=== PATIENT | male | born 1990 | race Caucasian/White ===

== ENCOUNTER 2018-01-19 04:11 | Inpatient (IN) | payer BC ==
[~2018-01-19] VITALS: Ht 182.9 cm; Wt 84.4 kg
[2018-01-19] MEDS ORDERED: NKM (04:15)
[2018-01-19 04:18] VITALS: BP 131/82
--- NOTE | 2018-01-19 04:22 | Emergency Room Report ---
History of Present Illness General Chief Complaint: Abdominal Pain Source: Patient Present Illness HPI This is a 27-year-old male with a history of kidney stone. He presents with chief complaint of renal colic. He was at another hospital 2 weeks ago and diagnosed with a 7 mm right kidney stone. He said it was doing well until about a week ago. He started having mild pain today. It came on severely about an hour ago. He had to call 911. Pain is 10 out of 10. radiating to right groin area. Denies any fever chills denies any hematuria. Does have nausea and vomiting. Nothing made it better. Nothing made it worse. Allergies: Coded Allergies: No Known Allergies (Unverified , 01/19/18) Patient History Past Medical History: see triage record, old chart reviewed Past Surgical History: other Pertinent Family History: none Social History: Denies: smoking Immunizations: other Reviewed Nursing Documentation: PMH: Agreed; PSxH: Agreed Nursing Documentation-PMH Past Medical History: No Stated History Review of Systems Eye: Denies: eye pain, blurred vision ENT: Denies: ear pain, nose congestion, throat swelling Respiratory: Denies: cough, shortness of breath Cardiovascular: Denies: chest pain, palpitations Gastrointestinal: Denies: abdominal pain, diarrhea, nausea, vomiting Genitourinary: Reports: pain Musculoskeletal: Denies: back pain, joint pain Skin: Denies: rash Neurological: Denies: headache, numbness Endocrine: Denies: increased thirst, increased urine Hematologic/Lymphatic: Denies: easy bruising All Other Systems: negative except mentioned in HPI Physical Exam Vital Signs Date Time Temp Pulse Resp B/P (MAP) Pulse Ox O2 Delivery O2 Flow Rate FiO2 01/19/18 04:10 98.2 125 18 130/80 95 Room Air vitals with tachycardia Sp02 EP Interpretation: reviewed, normal General Appearance: well appearing, alert, moderate distress - Secondary to pain Head: normocephalic, atraumatic Eyes: bilateral eye PERRL, bilateral eye EOMI ENT: hearing grossly normal, normal pharynx Neck: full range of motion, supple, no meningismus Respiratory: chest non-tender, lungs clear, normal breath sounds Cardiovascular #1: regular rate, rhythm, no murmur Gastrointestinal: normal bowel sounds, non tender, no mass, no organomegaly, no bruit, non-distended Musculoskeletal: back normal, gait/station normal, normal range of motion Psychiatric: mood/affect normal Skin: warm/dry Medical Decision Making Diagnostic Impression: Primary Impression: UTI (urinary tract infection) Qualified Codes: N30.00 - Acute cystitis without hematuria Additional Impressions: Ureteral stone with hydronephrosis Polysubstance abuse ER Course Patient presents with infected kidney stone. Antibiotic started. I discussed the case with Dr. Tillman, urologist. He will see pt as consult. I discussed case with Dr. Poole who will admit. 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 Lab Results Impression labs unremarkable CT/MRI/US Diagnostic Results CT/MRI/US Diagnostic Results : Imaging Test Ordered: CT abd/pelvis Impression Read by radiologist. 7 mm stone in the mid/distal right ureter with moderate to severe hydronephrosis. There is minimal perinephric stranding. Last Vital Signs Date Time Temp Pulse Resp B/P (MAP) Pulse Ox O2 Delivery O2 Flow Rate FiO2 01/19/18 04:10 98.2 125 18 130/80 95 Room Air Status: improved Disposition: ADMITTED INPATIENT Condition: Serious Adrian Calabrese MD Jan 19, 2018 04:22
[2018-01-19] MEDS ORDERED: Ketorolac 30mg Inj IV ONE (04:30)
[2018-01-19] MEDS ORDERED: Morphine Sulfate 10mg/ml Inj IVP ONE (04:30)
[2018-01-19 05:10] LABS: BASOPHILS % (AUTO) 1.1 % (0.0-2.0); EOSINOPHILS % (AUTO) 2.6 % (0.0-3.0); HEMATOCRIT 37.9 % (42.0-52.0); HEMOGLOBIN 13.3 G/DL (14.2-18.0); LYMPHOCYTES % (AUTO) 24.3 % (20.0-45.0); MEAN CORPUSCULAR VOLUME 90 FL (80-99); MONOCYTES % (AUTO) 7.7 % (1.0-10.0); NEUTROPHILS % (AUTO) 64.3 % (45.0-75.0); PLATELET COUNT 301 K/UL (150-450); RED BLOOD COUNT 4.19 M/UL (4.70-6.10); RED CELL DISTRIBUTION WIDTH 10.9 % (11.6-14.8); WHITE BLOOD COUNT 11.9 K/UL (4.8-10.8)
[2018-01-19 05:16] LABS: ANION GAP 8 mmol/L (5-15); BLOOD UREA NITROGEN 11 mg/dL (7-18); CALCIUM 9.3 MG/DL (8.5-10.1); CARBON DIOXIDE 26 MMOL/L (21-32); CHLORIDE 105 MMOL/L (98-107); POTASSIUM 3.8 MMOL/L (3.5-5.1); SODIUM 139 MMOL/L (136-145)
[2018-01-19] MEDS ORDERED: Morphine Sulfate 4mg/ml Inj (IV/IM USE ONLY) IVP ONE (05:30)
[2018-01-19 05:48] LABS: BILIRUBIN, URINE NEGATIVE (NEGATIVE); GLUCOSE, URINE (UA) NEGATIVE (NEGATIVE); KETONES,URINE NEGATIVE (NEGATIVE); NITRITE,URINE NEGATIVE (NEGATIVE); PH,URINE 7 (4.5-8.0); PROTEIN,URINE 2+ (NEGATIVE); UROBILINOGEN,URINE 1 MG/DL (0.0-1.0)
[2018-01-19] MEDS ORDERED: HYDROmorphone 1mg/ml Carpuject IVP ONE (06:00)
[2018-01-19 06:04] LABS: APPEARANCE,URINE SLIGHTLY CLOUDY; COLOR,URINE YELLOW; LEUKOCYTE ESTERASE ,URINE 3+ (NEGATIVE)
[2018-01-19] MEDS ORDERED: cefTRIAXone 1 GM in NS 55 ML IVPB ONE (06:15)
[2018-01-19 07:29] VITALS: BP 136/82
[2018-01-19] MEDS ORDERED: LORazepam Inj 2mg/ml 1ml IV ONE (07:45)
--- NOTE | 2018-01-19 08:41 | Diagnostic Imaging Report ---
Indication: Right flank pain for one day Technique: Spiral acquisitions obtained through the abdomen and pelvis. No oral or IV contrast utilized, per urinary stone protocol. Multiplanar reconstructions were generated. Total dose length product 783.38 mGycm. CTDIvol(s) 14.12 mGy. Dose reduction achieved using automated exposure control Comparison: none Findings: Within the distal right ureter, approximately 8 cm from the ureterovesical junction there is a 6 x 7 mm calculus. There is resultant moderate proximal right hydroureter and hydronephrosis. No intrarenal calculi are seen on the right. The left kidney demonstrates at least 2 calyceal calculi, largest in an upper pole calyx measuring 4 mm in diameter. No left ureteral calculi, hydronephrosis, or hydroureter demonstrated. Lack of IV contrast limits assessment of the renal parenchyma. No gross renal parenchymal mass or cyst demonstrated. Lack of IV contrast limits assessment of the other solid organs. The liver, gallbladder, bile ducts, pancreas are unremarkable. The spleen is borderline enlarged, measuring 13 cm long axis dimension. The adrenals are unremarkable. No retroperitoneal or mesenteric mass or adenopathy. No pelvic mass or adenopathy. The bladder is unremarkable. No evidence of diverticulosis or diverticulitis. The appendix is normal. No small bowel distention. No free or loculated intraperitoneal gas or fluid is evident. The stomach is distended. The distal esophagus is unremarkable. The included lung bases are clear. The bones are unremarkable. Impression: 6 x 7 mm calculus in the distal right ureter, resulting in hydronephrosis and hydroureter. 2 nonobstructive left intrarenal collecting Borderline splenomegaly This agrees with the preliminary interpretation provided overnight by [facility]erad[facility] service. The CT scanner at is accredited by the [employer] and the scans are performed using protocols designed to limit radiation exposure to as low as reasonably achievable to attain images of sufficient resolution adequate for diagnostic evaluation.
--- NOTE | 2018-01-19 08:50 | History and Physical ---
History of Present Illness General Date patient seen: Jan 19, 2018 Time patient seen: 08:50 Reason for Hospitalization: Abdominal Pain Present Illness HPI 27-year-old male with a history of kidney stone in the past s/p lithotripsy presented with severe 10/10 right flank pain with associated nausea. Patient states pain started yesterday. Denies any fevers/chills. Admits to dysuria but no hematuria. States he was at another hospital 2 weeks ago and diagnosed with a 7 mm right kidney stone. He said it was doing well until about a week ago. states his pain radiated to his right groin and hurts when he urinates States that nothing makes it better or worse. Pain is constant. CT abd/pelvis done on admit in the ED, image read by radiologist showing 7 mm stone in the mid/distal right ureter with moderate to severe hydronephrosis with minimal perinephric stranding. social hx: reviewed, occasional alcohol drinker, denies drug abuse except for marijuana, admits to smoking half ppd fam hx reviewed, denies any sig past fam hx code status reviewed, would like to remain full code. Allergies: Coded Allergies: No Known Allergies (Unverified , 01/19/18) Medication History Scheduled No Known Medications* (NKM - No Known Medications*), 0 ., (Reported) Patient History History Provided By: Patient Healthcare decision maker Resuscitation status Advanced Directive on File Review of Systems Constitutional: Denies: chills, sweats, fever, malaise, weakness Eye: Denies: eye pain, blurred vision, tearing, double vision, nose pain, nose congestion, acuity changes, discharge ENT: Denies: ear pain, ear discharge, nose pain, nose congestion, throat pain, throat swelling, mouth pain, hearing loss, nasal discharge Respiratory: Denies: cough, orthopnea, shortness of breath, stridor, wheezing, STERLING, sputum Cardiovascular: Denies: chest pain, edema, palpitations, syncope, PND Gastrointestinal: Reports: abdominal pain - right abd pain, nausea; Denies: constipation, diarrhea, vomiting, melena, hematemesis Genitourinary: Reports: dysuria, pain; Denies: discharge, frequency, hematuria , retention, incontinence, urgency, vag bleed/dc Musculoskeletal: Reports: other - right flank pain; Denies: back pain, gout, joint pain, joint swelling, muscle pain, muscle stiffness Skin: Denies: rash, change in color, change in hair/nails, dryness, lesions Psychiatric: Denies: prior hx, anxiety, depressed feelings, emotional problems , SI, HI, hallucinations Neurological: Denies: headache, numbness, paresthesia, seizure, tingling, tremors, focal weakness, syncope, dizziness Endocrine: Denies: excessive sweating, flushing, intolerance to temperature, increased thirst, increased urine, unexplained weight loss Hematologic/Lymphatic: Denies: anemia, blood clots, easy bleeding, easy bruising, swollen glands, diathesis Physical Exam Lines, tubes and drains: peripheral, central line HEENT: normocephalic, atraumatic Neck: non-tender, normal alignment, supple, normal inspection Respiratory/Chest: chest wall non-tender, lungs clear, normal breath sounds, no respiratory distress, no accessory muscle use, respiratory distress Cardiovascular/Chest: normal peripheral pulses, normal rate, regular rhythm Abdomen: normal bowel sounds, non tender, soft, no organomegaly, no mass Extremities: normal range of motion, non-tender, normal inspection, no calf tenderness, normal capillary refill Neurologic: internist II-XII grossly normal, no motor/sensory deficits, abnormal gait , alert, oriented x 3 Musculoskeletal: other - right CVA TTP+ Last 24 Hour Vital Signs Date Time Temp Pulse Resp B/P (MAP) Pulse Ox O2 Delivery O2 Flow Rate FiO2 01/19/18 07:29 98.1 90 20 136/82 98 Room Air 01/19/18 04:56 98.1 01/19/18 04:56 98.1 01/19/18 04:56 98.1 01/19/18 04:56 98.1 01/19/18 04:18 98.1 119 18 131/82 95 Room Air 01/19/18 04:18 119 19 Room Air 01/19/18 04:10 98.2 125 18 130/80 95 Room Air Intake and Output 01/18/18 01/19/18 19:00 07:00 Intake Total 1100 ml Output Total 250 ml Balance 850 ml Intake Oral 100 ml IV Total 1000 ml Output Urine Total 250 ml Laboratory Tests Test 01/19/18 04:28 01/19/18 05:28 White Blood Count 11.9 K/UL (4.8-10.8) H Red Blood Count 4.19 M/UL (4.70-6.10) L Hemoglobin 13.3 G/DL (14.2-18.0) L Hematocrit 37.9 % (42.0-52.0) L Mean Corpuscular Volume 90 FL (80-99) Mean Corpuscular Hemoglobin 31.7 PG (27.0-31.0) H Mean Corpuscular Hemoglobin Concent 35.1 G/DL (32.0-36.0) Red Cell Distribution Width 10.9 % (11.6-14.8) L Platelet Count 301 K/UL (150-450) Mean Platelet Volume 6.9 FL (6.5-10.1) Neutrophils (%) (Auto) 64.3 % (45.0-75.0) Lymphocytes (%) (Auto) 24.3 % (20.0-45.0) Monocytes (%) (Auto) 7.7 % (1.0-10.0) Eosinophils (%) (Auto) 2.6 % (0.0-3.0) Basophils (%) (Auto) 1.1 % (0.0-2.0) Sodium Level 139 MMOL/L (136-145) Potassium Level 3.8 MMOL/L (3.5-5.1) Chloride Level 105 MMOL/L (98-107) Carbon Dioxide Level 26 MMOL/L (21-32) Anion Gap 8 mmol/L (5-15) Blood Urea Nitrogen 11 mg/dL (7-18) Creatinine 1.0 MG/DL (0.55-1.30) Estimat Glomerular Filtration Rate > 60 mL/min (>60) Glucose Level 87 MG/DL (74-106) Calcium Level 9.3 MG/DL (8.5-10.1) Urine Color Yellow Urine Appearance Slightly cloudy Urine pH 7 (4.5-8.0) Urine Specific [place] 1.010 (1.005-1.035) Urine Protein 2+ (NEGATIVE) H Urine Glucose (UA) Negative (NEGATIVE) Urine Ketones Negative (NEGATIVE) Urine Blood 4+ (NEGATIVE) H Urine Nitrite Negative (NEGATIVE) Urine Bilirubin Negative (NEGATIVE) Urine Urobilinogen 1 MG/DL (0.0-1.0) H Urine Leukocyte Esterase 3+ (NEGATIVE) H Urine RBC 40-60 /HPF (0 - 0) H Urine WBC Tntc /HPF (0 - 0) H Urine Squamous Epithelial Cells None /LPF (NONE/OCC) Urine Bacteria Moderate /HPF (NONE) H Urine Opiates Screen Positive (NEGATIVE) H Urine Barbiturates Screen Positive (NEGATIVE) H Phencyclidine (PCP) Screen Negative (NEGATIVE) Urine Amphetamines Screen Negative (NEGATIVE) Urine Benzodiazepines Screen Positive (NEGATIVE) H Urine Cocaine Screen Negative (NEGATIVE) Urine Marijuana (THC) Screen Positive (NEGATIVE) H Height (Feet): 6 Weight (Pounds): 185 Assessment/Plan Problem List: (1) Ureteral stone with hydronephrosis ICD Codes: N13.2 - Hydronephrosis with renal and ureteral calculous obstruction SNOMED: 947600349 (2) Pyelonephritis ICD Codes: N12 - Tubulo-interstitial nephritis, not specified as acute or chronic SNOMED: 60593716 (3) Intractable pain ICD Codes: R52 - Pain, unspecified SNOMED: 53238289 (4) Nausea ICD Codes: R11.0 - Nausea SNOMED: 126774487 (5) Smoker ICD Codes: F17.200 - Nicotine dependence, unspecified, uncomplicated SNOMED: 37174237 (6) Marijuana abuse ICD Codes: F12.10 - Cannabis abuse, uncomplicated SNOMED: 88913444 Status: stable Assessment/Plan #Ureteral stone with hydronephrosis #Pyelonephritis #Intractable pain #Nausea - CT abd/pelvis done and reviewed on admit in the ED, image read by radiologist showing 7 mm stone in the mid/distal right ureter with moderate to severe hydronephrosis with minimal perinephric stranding. - continue IV pain control with morphine 4 mg q4hrs prn pain IV and ketorolac - NPO for surgery - appreciate urology recs - continue on abx, rocephin 1gm q24hrs, ucx sent, pending cx - prn antiemetics, zofran 4mg IV q4hrs prn nausea - flomax #Smoker -smokes half ppd -discussed smoking cessation for over 15minutes today, patient states he understands and that he needs to quit #Marijuana abuse -educated on marijuana cessation as well, patient states he understands ppx: scds diet: NPO for surgery I have spent over 72 minutes on this patient's case and over 40 minutes was dedicated to counseling and/or care coordination Sravani Gomez MD Jan 19, 2018 08:50
[2018-01-19] MEDS: Ketorolac 30mg Inj IM SCH ×3 (10:21→21:00)
[2018-01-19 12:00] VITALS: BP 103/67
[2018-01-19] MEDS: HYDROmorphone 1mg/ml Carpuject IVP PRN ×2 (14:50→23:06)
[2018-01-19 15:58] VITALS: BP 108/66
[2018-01-19 20:00] VITALS: BP 113/69
[2018-01-19] MEDS: Tamsulosin 0.4mg cap ORAL SCH (23:06)
[2018-01-20] VITALS (13 sets, daily range): BP systolic 118–154; BP diastolic 62–97
[2018-01-20] MEDS: Ketorolac 30mg Inj IM SCH ×4 (03:00→21:00)
[2018-01-20] MEDS: HYDROmorphone 1mg/ml Carpuject IVP PRN ×5 (04:21→21:22)
--- NOTE | 2018-01-20 08:53 | General Progress Note ---
Assessment/Plan Problem List: (1) Ureteral stone with hydronephrosis ICD Codes: N13.2 - Hydronephrosis with renal and ureteral calculous obstruction SNOMED: 344669734 (2) Pyelonephritis ICD Codes: N12 - Tubulo-interstitial nephritis, not specified as acute or chronic SNOMED: 16080729 (3) Intractable pain ICD Codes: R52 - Pain, unspecified SNOMED: 63813979 (4) Nausea ICD Codes: R11.0 - Nausea SNOMED: 002023804 (5) Smoker ICD Codes: F17.200 - Nicotine dependence, unspecified, uncomplicated SNOMED: 54915575 (6) Marijuana abuse ICD Codes: F12.10 - Cannabis abuse, uncomplicated SNOMED: 94826356 Status: stable Assessment/Plan #Ureteral stone with hydronephrosis #Pyelonephritis #Intractable pain #Nausea - CT abd/pelvis done and reviewed on admit in the ED, image read by radiologist showing 7 mm stone in the mid/distal right ureter with moderate to severe hydronephrosis with minimal perinephric stranding. - continue IV dilaudid and ketorolac - NPO for surgery - UROLOGY consulted by ED, placed another call today and left a message, will await call back - continue on abx, rocephin 1gm q24hrs, ucx sent, pending cx - pending AM labs - prn antiemetics, zofran 4mg IV q4hrs prn nausea - flomax #Smoker -smokes half ppd -discussed smoking cessation for over 15minutes yesterday, patient states he understands and that he needs to quit #Marijuana abuse -educated on marijuana cessation as well, patient states he understands ppx: scds diet: NPO for surgery I have spent over 39 minutes on this patient's case and over 25 minutes was dedicated to counseling and/or care coordination and face to face time Subjective Date patient seen: Jan 20, 2018 Time patient seen: 08:48 Allergies: Coded Allergies: No Known Allergies (Unverified , 01/19/18) Subjective f/u ureteral stone with hydronephrosis, pyelonephritis, flank pain states he is still having sever pain on the right flank with pain during urination denies fevers/chills/nausea/vomiting no acute events overnight pending urology recs, placed call at Dr. Zarco's office ROS: 12 point ros reviewed and negative except for the above Objective Last 24 Hour Vital Signs Date Time Temp Pulse Resp B/P (MAP) Pulse Ox O2 Delivery O2 Flow Rate FiO2 01/20/18 04:51 97.3 01/20/18 04:00 97.3 73 17 125/72 (89) 97 01/20/18 00:00 98.0 82 19 120/70 (87) 97 01/19/18 21:00 Room Air 01/19/18 20:00 97.0 79 18 113/69 (84) 100 01/19/18 15:58 98.0 92 18 108/66 (80) 99 01/19/18 12:00 98.1 90 18 103/67 (79) 97 01/19/18 10:51 98.1 01/19/18 09:00 Room Air Intake and Output 01/19/18 01/20/18 19:00 07:00 Intake Total 450 ml 1650 ml Balance 450 ml 1650 ml IV Total 450 ml 1650 ml # Voids 2 1 # Bowel Movements 1 1 Height (Feet): 6 Height (Inches): 0.00 Weight (Pounds): 186 General Appearance: WD/WN, no apparent distress EENT: PERRL/EOMI, normal ENT inspection, TMs normal, pharynx normal Neck: non-tender, normal alignment, supple Cardiovascular: normal peripheral pulses, normal rate, regular rhythm Respiratory/Chest: chest wall non-tender, lungs clear, normal breath sounds, no respiratory distress Abdomen: normal bowel sounds, non tender, soft, no organomegaly, no mass, other - +Right CVA TTP Extremities: normal range of motion, non-tender, normal inspection 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
[2018-01-20] MEDS: cefTRIAXone 1 GM in D5W 55 ML IVPB SCH (09:06)
[2018-01-20 09:22] LABS: BASOPHILS % (AUTO) 0.9 % (0.0-2.0); HEMATOCRIT 34.7 % (42.0-52.0); LYMPHOCYTES % (AUTO) 23.1 % (20.0-45.0); MEAN CORPUSCULAR VOLUME 93 FL (80-99); PLATELET COUNT 243 K/UL (150-450); RED BLOOD COUNT 3.74 M/UL (4.70-6.10); RED CELL DISTRIBUTION WIDTH 11.2 % (11.6-14.8)
[2018-01-20 09:35] LABS: ANION GAP 10 mmol/L (5-15); BLOOD UREA NITROGEN 8 mg/dL (7-18); CALCIUM 8.9 MG/DL (8.5-10.1); CARBON DIOXIDE 23 MMOL/L (21-32); CHLORIDE 109 MMOL/L (98-107); POTASSIUM 3.6 MMOL/L (3.5-5.1); SODIUM 142 MMOL/L (136-145)
[2018-01-20] MEDS ORDERED: NS Irrig 4000ml IRRIG ONE (14:00)
[2018-01-20] MEDS ORDERED: LR 1000ml ONE (14:00)
[2018-01-20] MEDS ORDERED: Ketorolac 30mg Inj ONE (14:00)
[2018-01-20] MEDS ORDERED: Propofol 200mg/20ml IV ONE (14:00)
[2018-01-20] MEDS ORDERED: Iothalamate Meglumine 60% 30ML INJ ONE ×2 (14:00→14:39)
--- NOTE | 2018-01-20 14:11 | Anethesia Preoperative Eval ---
Anesthesia Pre-op PMH/ROS General Date of Evaluation: Jan 20, 2018 Time of Evaluation: 14:04 Anesthesiologist: Kp ASA Score: ASA 1 Mallampati Score Class I : Soft palate, uvula, fauces, pillars visible Class II: Soft palate, uvula, fauces visible Class III: Soft palate, base of uvula visible Class IV: Only hard plate visible Mallampati Classification: Class I Surgeon: Primo Diagnosis: Abd Pain Surgical Procedure: Cystoscopy, Stent Anesthesia History: none Family History: no anesthesia problems Allergies: Coded Allergies: No Known Allergies (Unverified , 01/19/18) Medications: see eMAR Patient NPO?: Yes NPO Date: Jan 19, 2018 NPO Time: 729 Past Medical History Hematology/Immune: Reports: anemia PSxH Narrative: Lithotripsy Anesthesia Pre-op Phys. Exam Physician Exam Last Vital Signs Date Time Temp Pulse Resp B/P (MAP) Pulse Ox O2 Delivery O2 Flow Rate FiO2 01/20/18 09:00 Room Air 01/20/18 08:00 97.4 60 19 126/71 (89) 100 Constitutional: NAD Neurologic: CN 2-12 intact Cardiovascular: RRR Respiratory: CTA Gastrointestinal: S/NT/ND Airway Exam Mallampati Score: Class I MO: full ROM: full Teeth: intact Anesthesia Pre-op A/P Labs Hematology Test 01/20/18 08:40 White Blood Count 6.0 K/UL (4.8-10.8) Red Blood Count 3.74 M/UL (4.70-6.10) L Hemoglobin 12.0 G/DL (14.2-18.0) L Hematocrit 34.7 % (42.0-52.0) L Mean Corpuscular Volume 93 FL (80-99) Mean Corpuscular Hemoglobin 32.1 PG (27.0-31.0) H Mean Corpuscular Hemoglobin Concent 34.6 G/DL (32.0-36.0) Red Cell Distribution Width 11.2 % (11.6-14.8) L Platelet Count 243 K/UL (150-450) Mean Platelet Volume 7.6 FL (6.5-10.1) Neutrophils (%) (Auto) 65.0 % (45.0-75.0) Lymphocytes (%) (Auto) 23.1 % (20.0-45.0) Monocytes (%) (Auto) 7.0 % (1.0-10.0) Eosinophils (%) (Auto) 4.0 % (0.0-3.0) H Basophils (%) (Auto) 0.9 % (0.0-2.0) Chemistry Test 01/20/18 08:40 Sodium Level 142 MMOL/L (136-145) Potassium Level 3.6 MMOL/L (3.5-5.1) Chloride Level 109 MMOL/L (98-107) H Carbon Dioxide Level 23 MMOL/L (21-32) Anion Gap 10 mmol/L (5-15) Blood Urea Nitrogen 8 mg/dL (7-18) Creatinine 1.0 MG/DL (0.55-1.30) Estimat Glomerular Filtration Rate > 60 mL/min (>60) Glucose Level 90 MG/DL (74-106) Calcium Level 8.9 MG/DL (8.5-10.1) Risk Assessment & Plan Assessment: ASA 1 Plan: GA SED Status Change Before Surgery: Sathish Napier MD Jan 20, 2018 14:11
[2018-01-20] MEDS ORDERED: LR 1000ml 1,000 ML IVLG SCH ×2 (14:12)
[2018-01-20] MEDS ORDERED: Dexamethasone 4mg/ml vial ONE (14:15)
[2018-01-20] MEDS ORDERED: Ketorolac 30mg Inj IV PRN ×4 (14:15)
[2018-01-20] MEDS ORDERED: Atropine Sulfate 0.4mg/ml inj IVP PRN ×2 (14:15)
[2018-01-20] MEDS ORDERED: DiphenhydrAMINE 50mg/ml Inj IVP PRN ×2 (14:15)
[2018-01-20] MEDS ORDERED: oxyCODONE HCL/Acetaminophen 5/325mg ORAL PRN ×2 (14:15)
[2018-01-20] MEDS ORDERED: Metoclopramide 10mg/2ml Inj IVP PRN ×2 (14:15)
[2018-01-20] MEDS ORDERED: Hydromorphone 0.5mg/0.5ml inj IVP PRN (14:15)
[2018-01-20] MEDS ORDERED: Sodium Chloride 10ml vial INJ ONE (14:15)
[2018-01-20] MEDS ORDERED: Norco 5mg/325mg tab ORAL PRN ×3 (14:15→15:30)
[2018-01-20] MEDS ORDERED: LORazepam Inj 2mg/ml 1ml IV PRN ×2 (14:15)
[2018-01-20] MEDS ORDERED: HYDROcodone/Acetamin 7.5/325 tab ORAL PRN ×2 (14:15)
[2018-01-20] MEDS ORDERED: Lidocaine 1% MPF 10mg/ml 5ml ONE (14:15)
[2018-01-20] MEDS ORDERED: fentaNYL 100 mcg/2 mL IV PRN ×2 (14:15)
[2018-01-20] MEDS ORDERED: Midazolam 2mg/2ml Inj IVP PRN ×2 (14:15)
[2018-01-20] MEDS ORDERED: Meperidine 50mg/ml Inj(FOR RIGORS ONLY) IVP PRN ×2 (14:15)
[2018-01-20] MEDS ORDERED: fentaNYL 100 mcg/2 mL IV ONE (14:16)
--- NOTE | 2018-01-20 14:25 | Immediate Post-Op Evaluation ---
Immediate Post-Op Evalulation Immediate Post-Op Evalulation Procedure: Cystioscopy Date of Evaluation: Jan 20, 2018 Time of Evaluation: 15:49 IV Fluids: 1000 LR Blood Products: 0 Estimated Blood Loss: 3 Urinary Output: 0 Blood Pressure Systolic: 124 Blood Pressure Diastolic: 67 Pulse Rate: 88 Respiratory Rate: 16 O2 Sat by Pulse Oximetry: 100 Temperature (Fahrenheit): 97.5 Pain Score (1-10): 2 Nausea: No Vomiting: No Complications 0 Patient Status: awake, reacts, patent, none Hydration Status: adequate Dru Gram Ancef IV Given Within 1 Hr of Incision: Yes Time Given: 14:21 Sathish Goodrich MD Jan 20, 2018 14:25
--- NOTE | 2018-01-20 15:27 | Pre-Procedure Note/Attestation ---
Pre-Procedure Note/Attestation Complete Prior to Procedure Planned Procedure: right Procedure Narrative: right ureteroscopy stent placement Indications for Procedure Pre-Operative Diagnosis: right ureteral stone Attestation I attest that I discussed the nature of the procedure; its benefits; risks and complications; and alternatives (and the risks and benefits of such alternatives ), prior to the procedure, with the patient (or the patient's legal sales representative marine supplies). I attest that, if there was a reasonable possibility of needing a blood transfusion, the patient (or the patient's legal sales representative marine supplies) was given the [facility] standardized written summary, pursuant to the Johnathan Tyshawn Blood Safety Act ([place] Health and Safety Code # 1645, as amended). I attest that I re-evaluated the patient just prior to the surgery and that there has been no change in the patient's H&P, except as documented below: Peter Tillman MD Jan 20, 2018 15:27
--- NOTE | 2018-01-20 15:29 | Brief Operative Note ---
Immediate Post Operative Note Operative Note Pre-op Diagnosis: right ureteral stone Procedure: right ureteral stent placement RPG Post-op Diagnosis: same Surgeon: mikey torres Anesthesia: general Specimen: none Complications: none Condition: stable Fluids: 500 Estimated Blood Loss: minimal Implant(s) used?: Peter Beal MD Jan 20, 2018 15:29
[2018-01-20] MEDS: Hydromorphone 0.5mg/0.5ml inj IVP PRN ×2 (15:53→16:25)
[2018-01-20] MEDS ORDERED: LORazepam Inj 2mg/ml 1ml ONE (16:00)
--- NOTE | 2018-01-20 16:30 | Diagnostic Imaging Report ---
INDICATION: Pain, intraoperative TECHNIQUE: Intraoperative imaging Fluoroscopy time: 69 seconds Total dose: 0.08954 mGym2 Total number of images: 8 COMPARISON: None FINDINGS: Contrast opacifies normal caliber right distal ureter. Subsequent images demonstrate placement of a nephroureteral stent extending from the right renal pelvis to the bladder. IMPRESSION: Intraoperative imaging, as described
[2018-01-20] MEDS: D5 1/2NS w/KCl 20mEq 1,000 ML IV SCH (18:59)
[2018-01-20] MEDS: Tamsulosin 0.4mg cap ORAL SCH (21:21)
--- NOTE | 2018-01-20 22:15 | Consultation ---
DATE OF CONSULTATION: 01/19/2018 REASON FOR CONSULTATION: Obstructed and infected right jugular ureteral stone. HISTORY OF PRESENT ILLNESS: The patient is a very pleasant young gentleman, who had a large history of kidney stones. Had surgeries in the past with stents and lithotripsy. At this time, was admitted to [facility] ER with intractable pain, dehydration, and pyuria. He has been suffering from pain for several days. CT urogram showed hydronephrosis and obstructive stone. The patient was admitted for observation, intravenous antibiotics, and stent placement. PAST MEDICAL HISTORY: Significant for nephrolithiasis. FAMILY HISTORY: Noncontributory. REVIEW OF SYMPTOMS: Showed positive discomfort in the suprapubic area as well as the right CVA tenderness. Other than that, no evidence of hematuria or high grade fevers. PHYSICAL EXAM: GENERAL: He is afebrile. VITAL SIGNS: Stable. NEUROLOGICAL: Intact. LUNGS: Clear to auscultation. CARDIOVASCULAR: Regular rate and rhythm. ABDOMEN: Soft and tender in the right side. GENITOURINARY: Scrotal and rectal exam was normal. DIAGNOSTIC DATA: CT urogram was reviewed showing a mid ureteral stone with hydronephrosis. LABORATORY DATA: Labs were also reviewed. ASSESSMENT AND PLAN: The patient has an infected stone. I would recommend to put a stent. He is planning to fly to [place] and has a lithotripsy procedure there as well as a stent removal. I strongly advised him to make sure that the stent will be treated and removed either after surgery or he can come to my office within the next week or so for continuation of care and possible stent removal then. Again, the patient was warned that he will be wearing a double-J stent and that stent needs to be removed. Pteer Tillman M.D. DR: CRIS JOB#: [id number] CC:
[2018-01-21 00:08] VITALS: BP 124/80
[2018-01-21] MEDS: HYDROmorphone 1mg/ml Carpuject IVP PRN ×6 (01:47→20:09)
[2018-01-21] MEDS: Ketorolac 30mg Inj IM SCH ×4 (02:34→20:08)
[2018-01-21] MEDS: D5 1/2NS w/KCl 20mEq 1,000 ML IV SCH (04:10)
[2018-01-21 04:41] VITALS: BP 120/57
[2018-01-21 06:41] LABS: ANION GAP 8 mmol/L (5-15); BASOPHILS % (AUTO) 0.4 % (0.0-2.0); BLOOD UREA NITROGEN 8 mg/dL (7-18); CALCIUM 8.6 MG/DL (8.5-10.1); CARBON DIOXIDE 26 MMOL/L (21-32); CHLORIDE 106 MMOL/L (98-107); CREATININE 0.9 MG/DL (0.55-1.30); EOSINOPHILS % (AUTO) 0.5 % (0.0-3.0); HEMATOCRIT 33.9 % (42.0-52.0); HEMOGLOBIN 11.7 G/DL (14.2-18.0); LYMPHOCYTES % (AUTO) 16.8 % (20.0-45.0); MEAN CORPUSCULAR VOLUME 92 FL (80-99); MONOCYTES % (AUTO) 5.8 % (1.0-10.0); NEUTROPHILS % (AUTO) 76.5 % (45.0-75.0); PLATELET COUNT 254 K/UL (150-450); POTASSIUM 3.9 MMOL/L (3.5-5.1); RED BLOOD COUNT 3.71 M/UL (4.70-6.10); RED CELL DISTRIBUTION WIDTH 10.6 % (11.6-14.8); SODIUM 140 MMOL/L (136-145); WHITE BLOOD COUNT 12.2 K/UL (4.8-10.8)
[2018-01-21 08:00] VITALS: BP 131/76
--- NOTE | 2018-01-21 08:38 | General Progress Note ---
Assessment/Plan Problem List: (1) Ureteral stone with hydronephrosis ICD Codes: N13.2 - Hydronephrosis with renal and ureteral calculous obstruction SNOMED: 155334869 (2) Pyelonephritis ICD Codes: N12 - Tubulo-interstitial nephritis, not specified as acute or chronic SNOMED: 31811291 (3) Intractable pain ICD Codes: R52 - Pain, unspecified SNOMED: 28118136 (4) Nausea ICD Codes: R11.0 - Nausea SNOMED: 836868908 (5) Smoker ICD Codes: F17.200 - Nicotine dependence, unspecified, uncomplicated SNOMED: 96355606 (6) Marijuana abuse ICD Codes: F12.10 - Cannabis abuse, uncomplicated SNOMED: 90485801 (7) Anxiety ICD Codes: F41.9 - Anxiety disorder, unspecified SNOMED: 20673631 Status: stable Assessment/Plan #Ureteral stone with hydronephrosis #Pyelonephritis #Intractable pain #Nausea - CT abd/pelvis done and reviewed on admit in the ED, image read by radiologist showing 7 mm stone in the mid/distal right ureter with moderate to severe hydronephrosis with minimal perinephric stranding. - continue IV dilaudid and ketorolac - UROLOGY consulted by ED, Dr. Zarco, s/p right ureteral stent placement RPG done on 01/20/18 - ucx growing gram positive cocci, pending final results, continue antibiotics, appreciate urology recs - wbc increased to 12.2 from today, likely due to procedure yesterday.. cont abx and monitor - prn antiemetics, zofran 4mg IV q4hrs prn nausea - prn IV pain control with dilaudid - flomax #Smoker -smokes half ppd -has been educated on smoking cessation on admit for over 15 mins #Marijuana abuse -educated on marijuana cessation as well, patient states he understands #Anxiety - prn ativan 1mg q6hrs for anxiety ppx: scds diet: regular diet I have spent over 41 minutes on this patient's case and over 29 minutes was dedicated to counseling and/or care coordination and face to face time Subjective Date patient seen: Jan 21, 2018 Time patient seen: 08:31 Allergies: Coded Allergies: No Known Allergies (Unverified , 01/19/18) Subjective f/u ureteral stone with hydronephrosis, pyelonephritis, flank pain s/p right ureteral stent placement RPG per Urology ( Dr. Zarco) on 01/20/18 still having right sided flank pain however patient states pain has improved, currently at an 8/10 in severity huggins causing him much discomfort denies any fevers/chills/nausea/vomiting/diarrhea/constipation says he is having a lot of anxiety ROS: 12 point ros reviewed and negative except for the above Objective Last 24 Hour Vital Signs Date Time Temp Pulse Resp B/P (MAP) Pulse Ox O2 Delivery O2 Flow Rate FiO2 01/21/18 04:41 98.0 64 18 120/57 (78) 97 01/21/18 00:08 98.1 71 18 124/80 (95) 97 01/20/18 21:00 Room Air 01/20/18 20:00 98.2 77 20 128/74 (92) 97 01/20/18 18:17 98.9 01/20/18 16:55 98.9 01/20/18 16:40 98.9 64 15 137/69 100 Nasal Cannula 3 01/20/18 16:25 67 17 125/68 100 Nasal Cannula 3 01/20/18 16:23 98.9 01/20/18 16:12 77 15 144/73 100 Nasal Cannula 3 01/20/18 16:00 85 17 154/62 100 Nasal Cannula 3 01/20/18 15:53 88 19 143/72 100 Simple Mask 6 01/20/18 15:48 91 17 133/69 100 Simple Mask 6 01/20/18 15:43 83 13 118/97 100 Simple Mask 6 01/20/18 15:39 88 16 100 01/20/18 15:38 97.5 85 16 127/67 100 Simple Mask 01/20/18 15:00 97.6 69 16 118/72 (87) 01/20/18 09:00 Room Air Intake and Output 01/20/18 01/21/18 18:59 06:59 Intake Total 2100 ml 1480 ml Output Total 150 ml 2325 ml Balance 1950 ml -845 ml Intake Oral 480 ml IV Total 2100 ml 1000 ml Output Urine Total 150 ml 2325 ml # Voids 2 Laboratory Tests 01/20/18 08:40: White Blood Count 6.0, Red Blood Count 3.74L, Hemoglobin 12.0L, Hematocrit 34.7L , Mean Corpuscular Volume 93, Mean Corpuscular Hemoglobin 32.1H, Mean Corpuscular Hemoglobin Concent 34.6, Red Cell Distribution Width 11.2L, Platelet Count 243, Mean Platelet Volume 7.6, Neutrophils (%) (Auto) 65.0, Lymphocytes (%) (Auto) 23.1, Monocytes (%) (Auto) 7.0, Eosinophils (%) (Auto) 4.0H, Basophils (%) (Auto) 0.9, Sodium Level 142, Potassium Level 3.6, Chloride Level 109H, Carbon Dioxide Level 23, Anion Gap 10, Blood Urea Nitrogen 8, Creatinine 1.0, Estimat Glomerular Filtration Rate > 60, Glucose Level 90, Calcium Level 8.9 01/21/18 05:25: White Blood Count 12.2#H, Red Blood Count 3.71L, Hemoglobin 11.7L, Hematocrit 33.9L, Mean Corpuscular Volume 92, Mean Corpuscular Hemoglobin 31.6H, Mean Corpuscular Hemoglobin Concent 34.5, Red Cell Distribution Width 10.6L, Platelet Count 254, Mean Platelet Volume 7.2, Neutrophils (%) (Auto) 76.5H, Lymphocytes (%) (Auto) 16.8L, Monocytes (%) (Auto) 5.8, Eosinophils (%) (Auto) 0.5, Basophils (%) (Auto) 0.4, Sodium Level 140, Potassium Level 3.9, Chloride Level 106, Carbon Dioxide Level 26, Anion Gap 8, Blood Urea Nitrogen 8, Creatinine 0.9, Estimat Glomerular Filtration Rate > 60, Glucose Level 101, Calcium Level 8.6 Height (Feet): 6 Height (Inches): 0.00 Weight (Pounds): 186 General Appearance: WD/WN, alert, agitated, other - anxious EENT: PERRL/EOMI, normal ENT inspection, TMs normal, pharynx normal Neck: non-tender, normal alignment, supple, normal inspection Cardiovascular: normal peripheral pulses, normal rate, regular rhythm Respiratory/Chest: chest wall non-tender, lungs clear, normal breath sounds, no respiratory distress, no accessory muscle use Abdomen: normal bowel sounds, non tender, soft, no organomegaly, no mass, other - +CVA TTP on the right side Extremities: normal range of motion, non-tender, normal inspection, no calf tenderness Neurologic: care transport nurse II-XII grossly normal, no motor/sensory deficits, alert, oriented x 3, responsive, normal mood/affect Skin: normal pigmentation, warm/dry Sravani Gomez MD Jan 21, 2018 08:38
[2018-01-21] MEDS: cefTRIAXone 1 GM in D5W 55 ML IVPB SCH (09:39)
[2018-01-21] MEDS: LORazepam 1mg tab SL PRN ×2 (09:40→21:23)
[2018-01-21 12:00] VITALS: BP 128/79
[2018-01-21 16:00] VITALS: BP 123/68
[2018-01-21 20:00] VITALS: BP 128/79
[2018-01-21] MEDS: Tamsulosin 0.4mg cap ORAL SCH (20:09)
--- NOTE | 2018-01-21 23:00 | Operative Note - Dictated ---
DATE OF OPERATION: 01/20/2018 PREOPERATIVE DIAGNOSIS: Obstructing infected right ureteral stone. OPERATION: Cystoscopy, retrograde pyelogram, and double-J stent placement. POSTOPERATIVE DIAGNOSIS: Obstructing infected right ureteral stone. OPERATED BY: Peter Tillman M.D. ANESTHESIA: General. FINDINGS: Impacted stone in the ureter of the right side. INDICATIONS FOR SURGERY: The patient was admitted with UTI and impacted stone with creatinine of 1.5. Treatment options were explained to him in great length including all potential complications. He agreed with the above procedure placement of double-J stent. He signed a consent. PROCEDURE: The patient was brought to the operating room, placed in lithotomy position, prepped and draped in standard fashion under general anesthesia. Cystoscope was introduced into the bladder. Bladder was normal. Right ureter was cannulated. Guidewire was bypassed around the stone with some difficulties because of the impaction of the stone to the kidney. After that, 6-[place] 28 double-J stent was placed and left indwelling [place] catheter. The patient was transferred to recovery room in stable condition. No complications. Peter Tillman M.D. DR: NOLBERTO JOB#: [id number] CC:
[2018-01-22] MEDS: Ketorolac 30mg Inj IM SCH ×2 (02:33→09:00)
[2018-01-22 04:00] VITALS: BP 123/73
[2018-01-22] MEDS: HYDROmorphone 1mg/ml Carpuject IVP PRN ×2 (04:34→08:29)
[2018-01-22 07:15] LABS: ANION GAP 6 mmol/L (5-15); BLOOD UREA NITROGEN 8 mg/dL (7-18); CALCIUM 8.9 MG/DL (8.5-10.1); CARBON DIOXIDE 28 MMOL/L (21-32); CHLORIDE 107 MMOL/L (98-107); CREATININE 0.9 MG/DL (0.55-1.30); POTASSIUM 4.5 MMOL/L (3.5-5.1); SODIUM 141 MMOL/L (136-145)
[2018-01-22 07:17] LABS: BASOPHILS % (AUTO) 0.9 % (0.0-2.0); HEMATOCRIT 34.7 % (42.0-52.0); HEMOGLOBIN 11.9 G/DL (14.2-18.0); LYMPHOCYTES % (AUTO) 28.5 % (20.0-45.0); MEAN CORPUSCULAR VOLUME 92 FL (80-99); MONOCYTES % (AUTO) 7.3 % (1.0-10.0); NEUTROPHILS % (AUTO) 60.3 % (45.0-75.0); PLATELET COUNT 256 K/UL (150-450); RED BLOOD COUNT 3.78 M/UL (4.70-6.10); RED CELL DISTRIBUTION WIDTH 11.2 % (11.6-14.8); WHITE BLOOD COUNT 5.9 K/UL (4.8-10.8)
[2018-01-22 08:00] VITALS: BP 126/77
[2018-01-22] MEDS: cefTRIAXone 1 GM in D5W 55 ML IVPB SCH (09:20)
[2018-01-22 12:00] VITALS: BP 108/51
[2018-01-22] MEDS ORDERED: FLOMAX0.4 MG ORAL (12:01)
[2018-01-22] MEDS ORDERED: CIPRO XR 500 M500 MG ORAL (12:01)
--- NOTE | 2018-01-22 12:14 | Discharge Summary ---
Discharge Summary Hospital Course Date of Admission Jan 19, 2018 at 06:38 Date of Discharge 01/22/18 Admitting Diagnosis ureteral stone HPI Sergey Francisco is a 27 year old male who was admitted on Jan 19, 2018 at 06:38 for Ureteral Stone Consultations Urology Hospital Course 27-year-old male with a history of kidney stone in the past s/p lithotripsy presented with severe 10/10 right flank pain with associated nausea - admitted to the medical service. Treated with Flomax, ceftriaxone, pain medications and IV fluids. Seen by Urology for obstructing infected right ureteral stone and underwent ureteral stent placement. Urine culture grew Staph epi sensitive to FQ , unclear if this was pathogenic, patient is afebrile without leukocytosis and he will be discharged home on Cipro, Flomax and [place]. Of note, patient lives in [place] and will be flying home tomorrow. It was explained to him that he needs to see a Urologist when he gets home for eventual stent removal and he expressed understanding. Discharge Medications New Medications: Ciprofloxacin/Ciprofloxa Hcl (Cipro Xr 500 Mg Tablet) 500 Mg Tbmp.24hr 500 MG ORAL EVERY 12 HOURS for 7 Days, #14 TAB Tamsulosin HCl (Flomax) 0.4 Mg Cap.er.24h 0.4 MG ORAL BEDTIME for 30 Days, #30 CAP Discontinued Medications: No Known Medications* (NKM - No Known Medications*) . 0 ., 0 Refills Discharge Discharge Disposition Patient was discharged to Home Discharge Diagnoses: (1) Ureteral stone with hydronephrosis (2) UTI (urinary tract infection) Guanaco Johnson MD Jan 22, 2018 12:14
[2018-01-22] MEDS ORDERED: NORCO 5-325 TA1 EACH ORAL (12:44)
== END 2018-01-22 14:20 | disposition home or self-care (01) | DRG 661 ==
LOC: EDBD 04:11 → EMR 04:48 → 3E 06:38 → EDBEDREQ 07:08
DX: N13.2 Hydronephrosis with renal and ureteral calculous obstruction (principal); N12 Tubulo-interstitial nephritis, not specified as acute or chronic; F17.200 Nicotine dependence, unspecified, uncomplicated; F12.10 Cannabis abuse, uncomplicated; F41.9 Anxiety disorder, unspecified
CPT/HCPCS: 36415; 74176; 74420; 76000; 80048; 80307; 81003; 85025; 87086; 87181; 94003; 94150; 96361; 96365; 96375; 96376; 99285; J2405